=== PATIENT | male | born 1935 | race Caucasian/White ===

== ENCOUNTER 2019-07-11 12:42 | Emergency (ER) | payer MEDICARE, SELFPAY ==
--- NOTE | 2019-07-11 13:18 | CT ---
CT HEAD WITHOUT IV CONTRAST COMPARISON: None HISTORY: Dimension. Speech difficulties. Stroke like symptoms for 3 days. Difficulty walking. TECHNIQUE: Axial CT imaging at 5 mm intervals from vertex through skull base without contrast FINDINGS: Mild cerebral and cerebellar volume loss is present. Areas of diminished attenuation are seen in the periventricular white matter which are nonspecific but likely reflective of chronic small vessel ischemic changes. There is diminished attenuation seen in the inferior aspect of the posterior limb l eft internal capsule suggesting lacunar infarction of indeterminate age. There is no evidence of an acute cortical infarction, hemorrhage, mass effect, or midline shift. The ventricular system is shara l in size, shape, and position for the degree of sulcal atrophy. Mild thickening of the henning of the left maxillary antrum with minimal mucosal thickening in the limi francine visualized left maxillary antrum. Mastoid air cells are clear. Osseous structures appear intact. IMPRESSION: 1. 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 There is n o evidence of an acute cortical infarction or hemorrhage. 2. Chronic small vessel ischemic changes and cerebral as well as cerebellar volume loss.
[2019-07-11 13:28] LABS: INR-International Normal Ratio 17.4
[2019-07-11 13:30] LABS: Hemoglobin 5.8 g/dL (14.0-18.0); Mean Corpuscular HGB CONC 31.9 g/dL (32.0-36.0); Mean Corpuscular Hemoglobin 30.9 pg (27.0-31.0); Mean Corpuscular Volume 96.7 fL (78.0-98.0); Mean Platelet Volume 10.6 fL (7.4-10.4); Platelet Count 211 thou/uL (130-400); RBC Distribution Width 14.8 % (11.5-14.5); Red Blood Cell (RBC) Count 1.87 mill/uL (4.70-6.10); White Blood Cell (WBC) Count 20.6 thou/uL (4.8-10.8)
[2019-07-11 13:44] LABS: PTT 133.3 sec (22.9-36.1); Prothrombin Time 120.9 sec (12.0-14.7)
[2019-07-11 13:45] LABS: Anisocytosis SLIGHT = 6-15 cells (100X) (0-5/hpf); Band 3 % (5-11); Hypochromia MODERATE=16-30 cells (100X) (0-5/hpf); Lymphocytes 11 % (21-51); MDiff Complete? YES; Monocytes 5 % (0-10); Neutrophil 81 % (42-75); Nucleated RBC 1 % (0); Platelet Morphology Comment Appears Adequate
[2019-07-11] MEDS ORDERED: Phytonadione 10 MG/ML AMP ONE (13:53)
[2019-07-11 13:59] LABS: Anion Gap 25 mmol/L (10-20); BUN (Urea Nitrogen) 52 mg/dL (8.4-25.7); Bilirubin, Total 2.2 mg/dL (0.2-1.2); Calc. Creatinine Clearance 0 mL/min (70-130); Calcium 8.2 mg/dL (7.8-10.44); Carbon Dioxide 15 mmol/L (23-31); Chloride 99 mmol/L (98-107); Estimated GFR-MDRD 38; Glucose 113 mg/dL (83-110); Potassium 4.2 mmol/L (3.5-5.1); Protein, Total 5.8 g/dL (5.8-8.1); Sodium 135 mmol/L (136-145)
[2019-07-11 14:00] LABS: ALT (SGPT) 26 U/L (8-55); AST (SGOT) 33 U/L (5-34); Albumin 3.6 g/dL (3.4-4.8); Alkaline Phosphatase 60 U/L (40-110); Globulin 2.2 g/dL (2.4-3.5)
[2019-07-11 14:03] LABS: CKMB 12.5 ng/mL (0-6.6)
[2019-07-11] MEDS ORDERED: Sodium Chloride 0.9% 100 ML ONE (14:50)
[2019-07-11] MEDS ORDERED: Cefepime 2 GM VIAL ONE (14:50)
--- NOTE | 2019-07-11 16:22 | RAD ---
SINGLE VIEW OF THE CHEST: 07/11/19 COMPARISON: None. HISTORY: Chest pain and shortness of breath. FINDINGS: Single view of the chest shows a normal sized cardiomediastinal silhouette. There is no evidence of c onsolidation, mass, or pleural effusion. The bones are unremarkable. IMPRESSION: No evidence of acute cardiopulmonary disease. POS: EAA
== END 2019-07-11 16:00 | disposition short-term general hospital (02) ==
LOC: EDBD 12:42 → NAV ERS 12:42
DX: S40.011A Contusion of right shoulder, initial encounter (principal); S20.211A Contusion of right front wall of thorax, initial encounter; S70.12XA Contusion of left thigh, initial encounter; S80.12XA Contusion of left lower leg, initial encounter; I63.81 Other cerebral infarction due to occlusion or stenosis of small artery; D68.69 Other thrombophilia; R47.81 Slurred speech; R47.1 Dysarthria and anarthria; R27.0 Ataxia, unspecified; I48.91 Unspecified atrial fibrillation; F03.90 Unspecified dementia, unspecified severity, without behavioral disturbance, psychotic disturbance, mood disturbance, and anxiety; Z79.01 Long term (current) use of anticoagulants; Z87.891 Personal history of nicotine dependence; Z79.899 Other long term (current) drug therapy; W19.XXXA Unspecified fall, initial encounter
CPT/HCPCS: 70450; 71045; 80053; 82553; 83605; 83880; 84484; 85025; 85610; 85730; 87040; 93005; 96365; 96367; J0692; J3430; J3490

== ENCOUNTER 2019-07-14 10:08 | Inpatient (IN) | payer MEDICARE ==
[2019-07-14] MEDS ORDERED: Furosemide 20 MG TAB PO PRN (10:53)
[2019-07-14] MEDS ORDERED: Potassium Chloride 10 MEQ TAB PO PRN (10:53)
[2019-07-14] MEDS: Warfarin Sodium 5 MG TAB PO SCH (16:09)
[2019-07-14] MEDS: Warfarin Sodium 2.5 MG TAB PO SCH (16:09)
[2019-07-14 17:49] LABS: Bilirubin Small (Negative); Blood, Urine Negative (Negative); Clarity Clear (Clear); Glucose, Urine (Dipstick) Negative (Negative); Leukocyte Negative (Negative); Nitrite Negative (Negative); Protein, Urine (Dipstick) Negative (Neg-Trace); Urobilinogen > or = 8.0 mg/dL (Less than 2)
--- NOTE | 2019-07-14 23:48 | HP ---
HISTORY OF PRESENT ILLNESS: Mr. Hall is a well-developed, thin, 83-year-old white male, who presented to the emergency room at [facility], feeling somewhat weak. He has noted that his hemoglobin was 5.8, and his INR was 17.4. He was transferred to [facility] in [place] for further evaluation and transfusions x2. He was given Kcentra to reverse the Coumadin and started on IV Protonix. PAST MEDICAL HISTORY: Significant for atrial fibrillation in the past and possible dementia. PAST SURGICAL HISTORY: Reveals that the patient thinks he has had bilateral inguinal hernia surgeries in the past. ALLERGIES: REVEALS THE PATIENT HAS NO KNOWN DRUG ALLERGIES. MEDICATIONS: Reveals the patient is not sure what he is on, but he takes Coumadin [address] Rosario in [place]. SOCIAL HISTORY: Reveals the patient lives by himself in a one-story house with one step going in. He has never been and he has no children and he has no relatives. FAMILY HISTORY: Reveals the patient's father at age 80 of unknown etiology. The patient's mother at age 65 of Alzheimer's. The patient has three half-sisters and three half brothers. He states that as far as he knows they are fairly healthy. REVIEW OF SYSTEMS: CONSTITUTIONAL: The patient denies fever, chills, or night sweats. HEENT: The patient denies change in vision or change in hearing. RESPIRATORY: The patient denies cough, cold, congestion, or wheezing. CARDIOVASCULAR: The patient denies chest pain, palpitations, dyspnea on exertion, or shortness of breath. GI: The patient denies nausea, vomiting, diarrhea, or constipation. : The patient denies urgency, frequency, dysuria, or hematuria. NEUROLOGIC: The patient denies stroke-like symptoms or any focal changes. SKIN: The patient denies skin lesions, or skin rashes, or changes in those. PHYSICAL EXAMINATION: GENERAL: Reveals a well-developed, well-nourished, pleasant, thin, 83-year-old white male, in no apparent distress at this time. VITAL SIGNS: Reveals blood pressure on admission was 101/53, pulse 91 to 94, respirations 18 to 20, O2 saturation 94% to 96% on room air, T-max 98.5. HEENT: Reveals normocephalic and nontraumatic cranium. Pupils equally round and reactive. Extraocular movements are intact. Nose and throat are slightly dry, but clear. NECK: Supple without masses, nodes, or bruits. CHEST: Clear to auscultation. No rales, rhonchi, wheezes, or cough is noted. HEART: Reveals a regular rate and rhythm without murmurs, gallops, or rubs. ABDOMEN: Obese, soft, nontender without organomegaly. Normal bowel sounds are noted in all 4 quadrants. No rebound or guarding is noted. : Deferred. EXTREMITIES: Reveals no clubbing, cyanosis, or edema, but the patient does have some venous stasis changes. NEUROLOGIC: Nonfocal. SKIN: Reveals bilateral lower extremity venous stasis. ASSESSMENT: 1. Severe anemia with coagulopathy. 2. The patient was given Kcentra to reverse the Coumadin. 3. The patient was transfused with 2 units of blood. 4. Atrial fibrillation. 5. Recent leukocytosis. 6. Generalized weakness. PLAN: 1. The patient was admitted to [facility] for physical therapy and occupational therapy. 2. We will have Therapy to monitor and evaluate the patient tomorrow. 3. We will get him up and move. 4. We will monitor his PT/INR. 5. He will have a CBC and a comp met and a urinalysis. 6. Continue with supportive care. Job ID: [id number]
[2019-07-15 05:28] LABS: #Eosinphils 0.8 thou/uL (0.0-0.7); #Monocytes 0.5 thou/uL (0.11-0.59); #Neutrophils 5.3 thou/uL (1.40-6.50); %Basophils 0.6 % (0.0-1.0); %Eosinophils 10.9 % (0.0-10.0); %Monocytes 6.7 % (0.0-10.0); %Neutrophils 68.8 % (42.0-75.0); Hemoglobin 7.4 g/dL (14.0-18.0); Mean Corpuscular HGB CONC 31.7 g/dL (32.0-36.0); Mean Corpuscular Hemoglobin 31.9 pg (27.0-31.0); Mean Platelet Volume 9.7 fL (7.4-10.4); Platelet Count 145 thou/uL (130-400); RBC Distribution Width 18.1 % (11.5-14.5); Red Blood Cell (RBC) Count 2.31 mill/uL (4.70-6.10); White Blood Cell (WBC) Count 7.8 thou/uL (4.8-10.8)
[2019-07-15 05:35] LABS: INR-International Normal Ratio 1.4; Prothrombin Time 16.9 sec (12.0-14.7)
[2019-07-15 05:45] LABS: ALT (SGPT) 20 U/L (8-55); AST (SGOT) 16 U/L (5-34); Albumin 2.7 g/dL (3.4-4.8); Alkaline Phosphatase 54 U/L (40-110); Anion Gap 12 mmol/L (10-20); BUN (Urea Nitrogen) 15 mg/dL (8.4-25.7); Bilirubin, Total 1.5 mg/dL (0.2-1.2); Calc. Creatinine Clearance 65 mL/min (70-130); Calcium 7.4 mg/dL (7.8-10.44); Carbon Dioxide 22 mmol/L (23-31); Chloride 107 mmol/L (98-107); Estimated GFR-MDRD Greater than 90; Globulin 1.9 g/dL (2.4-3.5); Glucose 104 mg/dL (83-110); Potassium 4.2 mmol/L (3.5-5.1); Protein, Total 4.6 g/dL (5.8-8.1); Sodium 137 mmol/L (136-145)
--- NOTE | 2019-07-15 07:56 | PRG ---
DATE OF SERVICE: 07/15/2019 SUBJECTIVE: Mr. Hall is a very thin 83-year-old white male, who presented to the emergency room at [facility], feeling weak. His hemoglobin was 5.8. His INR was 17.4. He was transferred to [facility] in [place] for further evaluation. He was transfused x2 and given Kcentra to reverse his Coumadin. He was started on IV Protonix. He was evaluated by GI and stabilized. He was transferred back to [facility] for his extreme weakness. He does by himself and has no family. OBJECTIVE: VITAL SIGNS: Today reveal blood pressure 106/57, pulse 91 to 94, respirations 18 to 20, O2 saturation 94% to 96% on room air, and T-max 98.5. GENERAL: This is a very thin white male, in no apparent distress at this time. HEENT: Reveals normocephalic and nontraumatic cranium. Pupils are equally round and reactive. Extraocular movements intact. Nose and throat are slightly dry. NECK: Supple without masses, nodes, or bruits. CHEST: Clear to auscultation. No rales, rhonchi, wheezes, or cough is heard. HEART: Reveals irregularly irregular rate and rhythm with no murmurs, gallops, or rubs. ABDOMEN: Soft and nontender without organomegaly. Normal bowel sounds are noted in all 4 quadrants. No rebound or guarding is noted. GENITOURINARY: Deferred. EXTREMITIES: Reveal no clubbing, cyanosis, or edema. The patient does have lower extremity venous stasis. NEUROLOGIC: Nonfocal. SKIN: Reveals bilateral lower extremity venous stasis. ASSESSMENT: 1. Severe anemia with coagulopathy. 2. The patient was given Kcentra to reverse his Coumadin. 3. The patient was transfused with 2 units of blood in [place]. 4. Atrial fibrillation. 5. Recent leukocytosis. 6. Generalized weakness. PLAN: 1. The patient is admitted to [facility] for physical therapy and occupational therapy. 2. We will continue to have therapy starting again tomorrow. 3. We will keep the patient up in the room as much as possible. 4. Continue to monitor his PT and INR, which is 1.4 today. 5. The patient have a CBC and comprehensive metabolic panel and urinalysis done today, which were normal. Continue supportive care. 6. Monitor the patient's INR closely. Job ID: [id number]
[2019-07-15] MEDS: Atenolol 25 MG TAB PO SCH (09:16)
[2019-07-15] MEDS ORDERED: Prevnar 13-Val Conj/PF 0.5 ML SYRINGE IM ONE (11:15)
[2019-07-15] MEDS: Warfarin Sodium 5 MG TAB PO SCH (17:14)
[2019-07-16 05:22] LABS: INR-International Normal Ratio 1.5; Prothrombin Time 18.1 sec (12.0-14.7)
[2019-07-16] MEDS: Atenolol 25 MG TAB PO SCH (09:14)
--- NOTE | 2019-07-16 13:05 | PRG ---
DATE OF SERVICE: 07/16/2019 SUBJECTIVE: Mr. Hall is up in bed and just finished his lunch. He denies any questions or concerns. He is happy with his progress. Nursing noticed erythematous warm area in his left forearm. It looks like superficial phlebitis. The patient is not sure if he had an IV there. OBJECTIVE: VITAL SIGNS: He is afebrile, heart rate 91, respirations 18, oxygen saturation 93% on room air, blood pressure 124/60. CARDIOVASCULAR SYSTEM: S1 and S2 plus. RESPIRATORY SYSTEM: Normal vesicular breath sounds. ABDOMEN: Soft, nontender. Bowel sounds heard in all quadrants. EXTREMITIES: Without cyanosis or clubbing. CENTRAL NERVOUS SYSTEM: Grossly nonfocal. LABORATORY DATA: His INR is 1.5. Hemoglobin is 7.1. IMPRESSION: 1. Anemia requiring blood transfusion. 2. Coumadin toxicity, which has resolved. 3. Atrial fibrillation. 4. Significant deconditioning and macrocytosis. PLAN: 1. Recheck CBC tomorrow. 2. Continue current medications. 3. Physical therapy. 4. Nutritional support. 5. Monitor CBC. 6. Continue pantoprazole for stress ulcer prophylaxis. 7. Discussed with the patient in details. 8. Warm compresses for superficial phlebitis in his left forearm. Job ID: [id number]
[2019-07-16] MEDS: Warfarin Sodium 5 MG TAB PO SCH (19:12)
[2019-07-16] MEDS: Warfarin Sodium 2.5 MG TAB PO SCH (19:13)
[2019-07-17 05:34] LABS: #Basophils 0.1 thou/uL (0.0-0.2); #Eosinphils 0.7 thou/uL (0.0-0.7); #Monocytes 0.7 thou/uL (0.11-0.59); #Neutrophils 4.7 thou/uL (1.40-6.50); %Basophils 0.8 % (0.0-1.0); %Eosinophils 9.5 % (0.0-10.0); %Lymphocytes 13.8 % (21.0-51.0); %Monocytes 9.3 % (0.0-10.0); %Neutrophils 66.6 % (42.0-75.0); Hemoglobin 8.1 g/dL (14.0-18.0); Mean Corpuscular HGB CONC 30.4 g/dL (32.0-36.0); Mean Corpuscular Hemoglobin 31.5 pg (27.0-31.0); Mean Platelet Volume 8.6 fL (7.4-10.4); Platelet Count 152 thou/uL (130-400); RBC Distribution Width 18.1 % (11.5-14.5); Red Blood Cell (RBC) Count 2.57 mill/uL (4.70-6.10)
[2019-07-17 05:36] LABS: INR-International Normal Ratio 1.6; Prothrombin Time 18.8 sec (12.0-14.7)
[2019-07-17] MEDS: Atenolol 25 MG TAB PO SCH (08:34)
--- NOTE | 2019-07-17 13:38 | PRG ---
DATE OF SERVICE: 07/17/2019 SUBJECTIVE: Mr. Hall is up in his chair, getting ready to eat his lunch. He is happy with his progress. Denies any questions or concerns. OBJECTIVE: VITAL SIGNS: He is afebrile. Heart rate 106, respirations 18, oxygen saturation 96% on room air, blood pressure 123/60. CARDIOVASCULAR: S1 and S2 plus. RESPIRATORY: Normal vesicular breath sounds. ABDOMEN: Soft, nontender. Bowel sounds heard in all quadrants. EXTREMITIES: Without cyanosis or clubbing. Healing scratch roland. LABORATORY DATA: White count is 7, hemoglobin and hematocrit are 8.1 and 26.6. Sodium 137, potassium 4.2, BUN and creatinine are 15 and 0.81. IMPRESSION: 1. Anemia requiring blood transfusion. 2. Resolved coagulopathy. 3. Atrial fibrillation. 4. History of BPH and surgery. 5. Improving deconditioning. PLAN: 1. Continue current medications. 2. Nutritional support. 3. Physical therapy. 4. DVT and stress ulcer prophylaxis. 5. Decubitus precautions. 6. Routine laboratory values. Continue to monitor INR. Job ID: [id number]
[2019-07-17 14:30] VITALS: BMI 23.1
[2019-07-17] MEDS: Warfarin Sodium 5 MG TAB PO SCH (17:12)
[2019-07-18 05:27] LABS: INR-International Normal Ratio 1.7; Prothrombin Time 20.3 sec (12.0-14.7)
[2019-07-18] MEDS: Acetaminophen 500 MG TAB PO PRN (08:59)
[2019-07-18] MEDS: Atenolol 25 MG TAB PO SCH (08:59)
--- NOTE | 2019-07-18 13:50 | PRG ---
DATE OF SERVICE: 07/18/2019 SUBJECTIVE: Mr. Hall is up in the side of his bed, eating lunch. He denies any questions or concerns. He states that his left calf soreness is improving. He had a headache this morning, but the Tylenol helped. No concerns or questions discussed with nursing. OBJECTIVE: VITAL SIGNS: He is afebrile. Heart rate 102, respirations 22, oxygen saturation 94% on room air, blood pressure 125/64. CARDIOVASCULAR: S1 and S2 plus. RESPIRATORY: Normal vesicular breath sounds. ABDOMEN: Soft, nontender. Bowel sounds heard in all quadrants. EXTREMITIES: Without cyanosis or clubbing. CENTRAL NERVOUS SYSTEM: Improving deconditioning. IMPRESSION: 1. Anemia, requiring blood transfusion. 2. Coagulopathy, resolved. 3. Atrial fibrillation. 4. Improving deconditioning. 5. History of BPH in surgery. PLAN: 1. Continue current medications. 2. Nutritional support. 3. DVT prophylaxis - he is on warfarin. 4. Decubitus precautions. 5. Stress ulcer prophylaxis. 6. Continue physical therapy. 7. Routine laboratory values. 8. INR slowly getting back to therapeutic range, it is at 1.7. Job ID: [id number]
[2019-07-18] MEDS: Warfarin Sodium 2.5 MG TAB PO SCH (16:24)
[2019-07-18] MEDS: Warfarin Sodium 5 MG TAB PO SCH (16:24)
[2019-07-19 05:49] LABS: Prothrombin Time 22.4 sec (12.0-14.7)
[2019-07-19] MEDS: Acetaminophen 500 MG TAB PO PRN (07:50)
[2019-07-19] MEDS: Atenolol 25 MG TAB PO SCH (09:10)
--- NOTE | 2019-07-19 13:42 | PRG ---
DATE OF SERVICE: 07/19/2019 SUBJECTIVE: Mr. Hall is doing the same. He again states that he is having soreness in his left calf. When I asked him, he has never talked to me about that before. I recommended him that we discuss this every day and it is from his contusion, it is going to take 4 to 6 weeks. OBJECTIVE: VITAL SIGNS: He is afebrile. Heart rate 100, respirations 18, oxygen saturation 94% on room air, blood pressure 127/64. CARDIOVASCULAR SYSTEM: S1 and S2 plus. RESPIRATORY SYSTEM: Normal vesicular breath sounds. ABDOMEN: Soft, nontender. Bowel sounds heard in all quadrants. EXTREMITIES: Without cyanosis or clubbing. CENTRAL NERVOUS SYSTEM: Improving deconditioning. IMPRESSION: 1. Resolved coagulopathy. 2. Anemia requiring blood transfusion, now stable. 3. Atrial fibrillation. 4. Improving deconditioning. 5. Mild cognitive deficits. 6. History of BPH. PLAN: 1. Continue current medications. 2. Nutritional support. 3. DVT prophylaxis - he is on warfarin and his INR today is 2.0. 4. Continue therapy. 5. Discharge planning, in my opinion, the patient is not safe to live by himself given his past history. 6. Continue therapy. 7. Routine laboratory values. Job ID: [id number]
[2019-07-19] MEDS: Warfarin Sodium 5 MG TAB PO SCH (17:21)
[2019-07-20 05:37] LABS: INR-International Normal Ratio 2.4; Prothrombin Time 25.9 sec (12.0-14.7)
[2019-07-20] MEDS: Acetaminophen 500 MG TAB PO PRN (05:56)
[2019-07-20] MEDS: Atenolol 25 MG TAB PO SCH (09:04)
--- NOTE | 2019-07-20 09:51 | DIS ---
DATE OF ADMISSION: 07/14/2019 DATE OF DISCHARGE: 07/20/2019 PRINCIPAL DIAGNOSES: 1. Anemia, likely due to chronic blood loss, status post transfusion. 2. Coagulopathy, which is resolved. 3. History of atrial fibrillation. 4. Deconditioning. 5. Therapy and nursing feel that he needs 24/7 care. COMPLICATIONS: None. ADVERSE REACTIONS: None. PROCEDURES: None. CONSULTATIONS: None except PT and OT. HOSPITAL COURSE: The patient was admitted on 07/13 as a transfer from [facility] in [place], where he was admitted with hemoglobin of 5.8 and . He apparently was living by himself and has been taking his warfarin, but has not followed up with his physicians and had any of his INR checked. He was given blood transfusion and Kcentra. He was on IV Protonix that was switched to p.o. medications and he was resumed back on Coumadin once his INR became in the therapeutic range. He maintained his hemoglobin. He did not have a GI workup. He was felt to be a candidate for therapy and transferred here. He has done well, but both therapy and nursing feel that he needs 24/7 care, so he has a friend apparently, Ms. Schaeffer, who wanted him to go to one side of a [facility] and she lives on close by and can monitor him closely, but that still not 24/7 care even with arranging home health and everything staff feels that he will not be able to manage, and so the plan is for him to go to a nursing facility for continued improvement and hopefully from there go to this independent living facility with help nearby. I tried to call Ms. Schaeffer at [phone] and all I could do was leave a message. PHYSICAL EXAMINATION: VITAL SIGNS: On the day of discharge, Mr. Hall is afebrile. Heart rate 110, respirations 22, oxygen saturation 96%, and blood pressure 142/66. CARDIOVASCULAR: S1 and S2 plus, atrial fibrillation, irregularly irregular. RESPIRATORY: Normal vesicular breath sounds. ABDOMEN: Soft, nontender. Bowel sounds heard in all quadrants. EXTREMITIES: Without cyanosis or clubbing. Improving contusion to the left calf area. No evidence for deep venous thrombosis. CENTRAL NERVOUS SYSTEM: Improving deconditioning. LABORATORY DATA: His INR is 2.4 today. DISCHARGE MEDICATIONS: 1. Tylenol 500 mg q.6 p.r.n. 2. Metoprolol 25 mg daily. 3. Lasix 20 mg daily as needed. 4. Protonix 40 mg daily. 5. Potassium 10 mEq daily if he takes Lasix. 6. Coumadin 5 mg alternating with 2.5, but I think he should be fine with just the 2.5 daily since his INR has increased from 1.2 to 2.4 over the admission. Obviously, he will need his daily PT/INR monitored. PT/OT to continue to work with him, and hopefully, he will get safe enough to be discharged to an independent living situation with friends close by. Case management is arranging for placement in a nursing facility. Okay to discharge when arranged. Therapy states that they walked him yesterday without any assistance. After leaving the hospital, I was called and told that now therapy is fine with him going home as is Nursing. I asked my office to send in Protonix and Warfarin to [facility] pharmacy and orders to check CBC and INR on 07/23/19 to the hospital lab. Pt is to f/u with his PCP or my office in 7-10 days. Job ID: [id number] [id number]
[2019-07-20] MEDS: Warfarin Sodium 5 MG TAB PO SCH (16:34)
[2019-07-20] MEDS: Warfarin Sodium 2.5 MG TAB PO SCH (16:34)
[2019-07-20 17:43] VITALS: BP 137/62; TEMP 96.5
== END 2019-07-20 17:20 | DRG 813 ==
LOC: NAV ACUTE 10:08
PROVIDERS: ADMIT Internal Medicine; ATTEND Internal Medicine
DX: D68.9 Coagulation defect, unspecified (principal); D50.0 Iron deficiency anemia secondary to blood loss (chronic); I48.91 Unspecified atrial fibrillation; R53.1 Weakness; T45.515A Adverse effect of anticoagulants, initial encounter; R53.81 Other malaise; D75.89 Other specified diseases of blood and blood-forming organs; I80.8 Phlebitis and thrombophlebitis of other sites; R41.89 Other symptoms and signs involving cognitive functions and awareness; Z87.448 Personal history of other diseases of urinary system
CPT/HCPCS: 36415; 80053; 81003; 85025; 85610; 90471; 90670; G0009

== ENCOUNTER 2022-08-23 14:57 | Emergency (ER) | payer OTHER ==
[2022-08-23] MEDS ORDERED: Bacitracin 1 PK ONE (16:35)
[2022-08-23 17:09] LABS: #Basophils 0.1 thou/uL (0.0-0.2); #Eosinphils 0.3 thou/uL (0.0-0.7); #Lymphocytes 1.3 thou/uL (1.20-3.40); #Monocytes 0.5 thou/uL (0.11-0.59); #Neutrophils 3.6 thou/uL (1.40-6.50); %Basophils 0.9 % (0.0-1.0); %Eosinophils 5.4 % (0.0-10.0); %Lymphocytes 22.4 % (21.0-51.0); %Monocytes 8.4 % (0.0-10.0); Hemoglobin 14.4 g/dL (14.0-18.0); INR-International Normal Ratio 1.2; Mean Corpuscular HGB CONC 31.3 g/dL (32.0-36.0); Mean Corpuscular Volume 92.7 fl (78.0-98.0); Platelet Count 120 10x3/uL (130-400); Prothrombin Time 15.7 sec (12.0-14.7); Red Blood Cell (RBC) Count 4.98 mill/uL (4.70-6.10); White Blood Cell (WBC) Count 5.7 10x3/uL (4.8-10.8)
[2022-08-23 17:10] LABS: PTT 22.9 sec (22.9-36.1)
[2022-08-23 17:18] LABS: ALT (SGPT) 17 U/L (8-55); AST (SGOT) 20 U/L (5-34); Albumin 4.3 g/dL (3.4-4.8); Alkaline Phosphatase 69 U/L (40-110); Anion Gap 15 mmol/L (10-20); BUN (Urea Nitrogen) 18 mg/dL (8.4-25.7); Bilirubin, Total 0.6 mg/dL (0.2-1.2); Calc. Creatinine Clearance 0 mL/min (70-130); Calcium 9.3 mg/dL (7.8-10.44); Carbon Dioxide 25 mmol/L (23-31); Chloride 104 mmol/L (98-107); Estimated GFR 64; Globulin 3.1 g/dL (2.4-3.5); Glucose 92 mg/dL (83-110); Protein, Total 7.4 g/dL (5.8-8.1); Sodium 139 mmol/L (136-145)
== END 2022-08-23 17:55 | disposition home or self-care (01) ==
LOC: NAV ERS 14:57
DX: S06.6XAA Traumatic subarachnoid hemorrhage with loss of consciousness status unknown, initial encounter (principal); S01.81XA Laceration without foreign body of other part of head, initial encounter; I48.91 Unspecified atrial fibrillation; F03.90 Unspecified dementia, unspecified severity, without behavioral disturbance, psychotic disturbance, mood disturbance, and anxiety; W54.1XXA Struck by dog, initial encounter; Y93.01 Activity, walking, marching and hiking; Z79.01 Long term (current) use of anticoagulants; Z79.899 Other long term (current) drug therapy
CPT/HCPCS: 36415; 70450; 80053; 85025; 85610; 85730

== ENCOUNTER 2022-12-31 10:01 | Emergency (ER) | payer MEDICARE, OTHER ==
[2022-12-31] MEDS ORDERED: Lidocaine 1% w/Epinephrine 1:100K 20 ML VIAL ONE (10:27)
[2022-12-31] MEDS ORDERED: Boostrix 0.5 ML (Tdap) VIAL (>/=7 yrs of age) ONE (10:28)
[2022-12-31] MEDS ORDERED: Bacitracin 1 PK ONE (10:42)
== END 2022-12-31 11:22 | disposition home or self-care (01) ==
LOC: NAV ERS 10:01
DX: S01.01XA Laceration without foreign body of scalp, initial encounter (principal); I48.91 Unspecified atrial fibrillation; E78.00 Pure hypercholesterolemia, unspecified; I10 Essential (primary) hypertension; Z87.891 Personal history of nicotine dependence; Z79.899 Other long term (current) drug therapy; Z79.82 Long term (current) use of aspirin; Z79.01 Long term (current) use of anticoagulants; W06.XXXA Fall from bed, initial encounter
CPT/HCPCS: 12002; 70450; 90471; 90715